=== PATIENT | male | born 1990 | race Caucasian/White ===

== ENCOUNTER 2017-10-31 22:15 | Emergency (ER) | payer BC ==
[~2017-10-31 22:15] MED LIST: HALOPERIDOL LACT 5 MG/ML INJ IM ONE
[2017-10-31] MEDS ORDERED: HALOPERIDOL LACT 5 MG/ML INJ ONE (22:17)
[2017-10-31] MEDS ORDERED: LORazepam 2 MG/ML INJ IM ONE (22:19)
[2017-10-31] MEDS ORDERED: HALOPERIDOL LACT 5 MG/ML INJ IM ONE (22:21)
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
[2017-10-31 23:14] VITALS: TEMP 97.5
[2017-11-01 06:23] VITALS: RESP 16
[2017-11-01 07:55] VITALS: BP 103/62; PULSE 84; O2SAT 95
== END 2017-11-01 08:52 | disposition home or self-care (01) ==
LOC: EDUNIT#
DX: F10.920 Alcohol use, unspecified with intoxication, uncomplicated (principal)
CPT/HCPCS: J1630

== ENCOUNTER 2018-11-07 22:14 | Emergency (ER) | payer BC ==
[2018-11-07] MEDS ORDERED: MIDAZOLAM 2 MG/2 ML VIAL IVP ONE (23:33)
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
[2018-11-08] MEDS ORDERED: ACETAMINOPHEN 500 MG TAB PO ONE (03:15)
[2018-11-08] MEDS ORDERED: IBUPROFEN 200 MG TAB PO ONE (03:15)
[2018-11-08] MEDS ORDERED: SKIN ADHESIVE (DERMABOND) 1 EACH TP ONE (03:18)
[2018-11-08 04:38] VITALS: BP 137/90
== END 2018-11-08 04:37 | disposition home or self-care (01) ==
LOC: EDUNIT#
PROC: 08QPXZZ Repair Left Upper Eyelid, External Approach (ICD-10-PCS; principal; 2018-11-07)
DX: S01.112A Laceration without foreign body of left eyelid and periocular area, initial encounter (principal); S00.31XA Abrasion of nose, initial encounter; F10.921 Alcohol use, unspecified with intoxication delirium; Y04.0XXA Assault by unarmed brawl or fight, initial encounter; Y92.9 Unspecified place or not applicable; Y99.9 Unspecified external cause status; Y93.9 Activity, unspecified
CPT/HCPCS: 96374; J2250